=== PATIENT | female | born 1995 | race African-American/Black ===

== ENCOUNTER 2020-12-31 10:34 | Emergency (ER) | payer MEDICAID, OTHER ==
[~2020-12-31] VITALS: Ht 170.2 cm; Wt 136.0 kg
[2020-12-31] MEDS ORDERED: IBUPROFEN 600MG TABLET PO ONE (11:00)
[2020-12-31] MEDS ORDERED: CYCLOBENZAPRINE 10MG TABLET PO ONE (11:00)
[2020-12-31] MEDS ORDERED: IPRATROPIUM BROMIDE (0.02%) 0.5MG/2.5ML NEB HHN STA (12:32)
[2020-12-31] MEDS ORDERED: ALBUTEROL (0.083%) 2.5MG/3ML NEB HHN STA (12:32)
[2020-12-31] MEDS ORDERED: ACETAMINOPHEN 325MG TABLET PO ONE (13:15)
[2020-12-31] MEDS ORDERED: CYCL10TA7 MT (14:31)
[2020-12-31] MEDS ORDERED: ALBU6.7H9 INH (14:31)
[2020-12-31] MEDS ORDERED: TRAM50TA MT (14:31)
[2020-12-31 15:27] VITALS: BP 116/73
== END 2020-12-31 15:30 | disposition home or self-care (01) ==
LOC: ER 10:34
DX: S09.8XXA Other specified injuries of head, initial encounter (principal); R06.02 Shortness of breath; M54.89 Other dorsalgia; E11.9 Type 2 diabetes mellitus without complications; J20.9 Acute bronchitis, unspecified; V49.49XA Driver injured in collision with other motor vehicles in traffic accident, initial encounter; Y93.89 Activity, other specified; Y92.488 Other paved roadways as the place of occurrence of the external cause
CPT/HCPCS: 70450; 71045; 72070; 81025; 94640; 99284; Z7610

== ENCOUNTER 2021-02-10 04:05 | Emergency (ER) | payer MEDICAID ==
[~2021-02-10] VITALS: Ht 170.2 cm; Wt 130.0 kg
[~2021-02-10 04:05] MED LIST: ALBU6.7H9 INH; CYCL10TA7 MT; TRAM50TA MT
[2021-02-10 04:30] VITALS: BP 161/104
== END 2021-02-10 05:08 | disposition home or self-care (01) ==
LOC: ER 04:05
DX: U07.1 COVID-19 (principal); J45.909 Unspecified asthma, uncomplicated; E11.9 Type 2 diabetes mellitus without complications; Z79.51 Long term (current) use of inhaled steroids
CPT/HCPCS: 99283; C9803; U0003; U0005

== ENCOUNTER 2022-02-17 23:41 | Emergency (ER) | payer MEDICAID ==
[~2022-02-17] VITALS: Ht 167.6 cm; Wt 129.0 kg
[~2022-02-17 23:41] MED LIST changes: +ALBU6.7H3 INH; -ALBU6.7H9 INH; +CYCL10TA21 MT; -CYCL10TA7 MT
[2022-02-18 00:12] VITALS: BP 156/102
[2022-02-18] MEDS ORDERED: IBUP-2028 PO (03:24)
== END 2022-02-18 04:06 | disposition home or self-care (01) ==
LOC: ER 23:41
DX: M25.531 Pain in right wrist (principal); J45.909 Unspecified asthma, uncomplicated; E11.9 Type 2 diabetes mellitus without complications; Z87.828 Personal history of other (healed) physical injury and trauma; Z90.49 Acquired absence of other specified parts of digestive tract; Z91.013 Allergy to seafood
CPT/HCPCS: 73110; 99283

== ENCOUNTER 2024-12-08 12:03 | Emergency (ER) | payer MEDICAID ==
[~2024-12-08] VITALS: Ht 175.3 cm; Wt 105.0 kg
[~2024-12-08 12:03] MED LIST changes: +IBUP-2028 PO
[2024-12-08 12:05] VITALS: O2SAT 100
[2024-12-08] MEDS: TETANUS, DIPHTHERIA, PERTUSSIS VAC/PF 0.5ML (>10YR OLD) IM ONE (12:57)
[2024-12-08] MEDS: IBUPROFEN 600MG TABLET PO ONE (12:57)
[2024-12-08] MEDS ORDERED: IBUP-1455 MT (13:09)
[2024-12-08 13:27] VITALS: BP 138/95; PULSE 76; RESP 18; TEMP 36.7; O2SAT 100
== END 2024-12-08 13:45 | disposition home or self-care (01) ==
LOC: ER 12:03
DX: M25.562 Pain in left knee (principal); E11.9 Type 2 diabetes mellitus without complications; I10 Essential (primary) hypertension; J45.909 Unspecified asthma, uncomplicated; Z23 Encounter for immunization; Z79.1 Long term (current) use of non-steroidal anti-inflammatories (NSAID); Z90.49 Acquired absence of other specified parts of digestive tract; W01.0XXA Fall on same level from slipping, tripping and stumbling without subsequent striking against object, initial encounter; Y93.89 Activity, other specified; Y92.89 Other specified places as the place of occurrence of the external cause; Y99.8 Other external cause status
CPT/HCPCS: 73562; 90715; 90471; 99283; Z7610